=== PATIENT | female | born 1945 | race Caucasian/White ===

== ENCOUNTER 2024-05-16 07:24 | Day surgery (SDC) | payer OTHER ==
[2024-05-10 14:53] VITALS: BMI 22.0
[2024-05-16] MEDS: CIPROFLOXACIN 0.3% EYE DROPS 5 ML BOTTLE ONE (07:50)
[2024-05-16] MEDS: CYCLOPENTOLATE 2% OPHTH SOLN 2 ML BOTTLE ONE (07:50)
[2024-05-16] MEDS: PHENYLEPHRINE 2.5% OPTHALMIC DROP 2ML BOTTLE ONE (07:50)
[2024-05-16] MEDS: TROPICAMIDE 1% OPHTH SOLN 15 ML BOTTLE ONE (07:50)
[2024-05-16] MEDS ORDERED: LIDOCAINE 1% P/F 10 MG/ML VIAL ONE (08:14)
[2024-05-16] MEDS ORDERED: CARBACHOL 0.01% INTRA-OCULAR 1.5 ML VIAL ONE (08:15)
[2024-05-16] MEDS ORDERED: BSS (NA/CA/MG/K) BALANCED SALT SOLUTION OPHTH SOLN 15 ML BOTTLE ONE (08:15)
[2024-05-16] MEDS ORDERED: TETRACAINE 0.5% OPHTH SOLN 2 ML BOTTLE ONE (08:15)
[2024-05-16] MEDS ORDERED: NEO/POLYMYX B SULF/DEXAMETH OPHTHALMIC 5ML BOTTLE ONE (08:15)
[2024-05-16] MEDS ORDERED: MIDAZOLAM HCL 2 MG/2 ML SINGLE DOSE VIAL ONE (09:31)
[2024-05-16 10:43] VITALS: TEMP 97.7
[2024-05-16 10:47] VITALS: BP 114/68; PULSE 58; RESP 19
== END 2024-05-16 10:49 | disposition home or self-care (01) ==
LOC: FASU 07:24
PROVIDERS: ATTEND Ophthalmology
PROC: 08RJ3JZ Replacement of Right Lens with Synthetic Substitute, Percutaneous Approach (ICD-10-PCS; principal; 2024-05-16 10:01)
DX: H26.8 Other specified cataract (principal)
CPT/HCPCS: 66984; V2632

== ENCOUNTER 2024-05-30 08:49 | Day surgery (SDC) | payer OTHER ==
[2024-05-25 11:01] VITALS: BMI 22.0
[2024-05-30] MEDS: CYCLOPENTOLATE 2% OPHTH SOLN 2 ML BOTTLE ONE (09:15)
[2024-05-30] MEDS: PHENYLEPHRINE 2.5% OPTHALMIC DROP 2ML BOTTLE ONE (09:15)
[2024-05-30] MEDS: TROPICAMIDE 1% OPHTH SOLN 15 ML BOTTLE ONE (09:15)
[2024-05-30] MEDS: CIPROFLOXACIN 0.3% EYE DROPS 5 ML BOTTLE ONE (09:15)
[2024-05-30 09:22] VITALS: TEMP 97.1
[2024-05-30] MEDS ORDERED: EPINEPHrine/PF 1 MG/1 ML (1:1,000) AMPULE ONE (09:27)
[2024-05-30] MEDS ORDERED: LIDOCAINE 1% P/F 10 MG/ML VIAL ONE (09:27)
[2024-05-30] MEDS ORDERED: CARBACHOL 0.01% INTRA-OCULAR 1.5 ML VIAL ONE (09:27)
[2024-05-30] MEDS ORDERED: NEO/POLYMYX B SULF/DEXAMETH OPHTHALMIC 5ML BOTTLE ONE (09:27)
[2024-05-30] MEDS ORDERED: BSS (NA/CA/MG/K) BALANCED SALT SOLUTION OPHTH SOLN 15 ML BOTTLE ONE (09:27)
[2024-05-30] MEDS ORDERED: TETRACAINE 0.5% OPHTH SOLN 2 ML BOTTLE ONE (09:27)
[2024-05-30] MEDS ORDERED: MIDAZOLAM HCL 2 MG/2 ML SINGLE DOSE VIAL ONE (10:45)
[2024-05-30 11:15] VITALS: RESP 18
[2024-05-30 11:20] VITALS: PULSE 47
[2024-05-30 11:48] VITALS: BP 120/68
== END 2024-05-30 12:20 | disposition home or self-care (01) ==
LOC: FASU 08:49
PROVIDERS: ATTEND Ophthalmology
PROC: 08RK3JZ Replacement of Left Lens with Synthetic Substitute, Percutaneous Approach (ICD-10-PCS; principal; 2024-05-30 10:51)
DX: H26.8 Other specified cataract (principal)
CPT/HCPCS: 66984; V2632